=== PATIENT | female | born 1995 | race Caucasian/White ===

== ENCOUNTER 2018-12-03 20:39 | Emergency (ER) | payer OTHER ==
[~2018-12-03] VITALS: Ht 162.6 cm; Wt 46.8 kg
[2018-12-03] MEDS ORDERED: IBUP1TAB7 PO (20:44)
[2018-12-03] MEDS ORDERED: NORCO, ANEXSIA 5/325MG TABLET (HYDROcodone/ACETAMINOPHEN) PO ONE (22:45)
[2018-12-03] MEDS ORDERED: CORTISPORIN OTIC SOLN 10 ML BTL AS ONE (22:45)
[2018-12-03] MEDS ORDERED: AUGMENTIN 875 MG TAB PO ONE (22:45)
[2018-12-03] MEDS ORDERED: AUGM875T28 PO (22:58)
[2018-12-03] MEDS ORDERED: NEOM1SOL19 OTIC (22:58)
[2018-12-03] MEDS ORDERED: HYDR-3715 PO (22:58)
[2018-12-03 23:10] VITALS: BP 134/72
[2018-12-03] MEDS ORDERED: NORCO 5/325MG TABLET (BULK FOR ED) PO ONE (23:15)
== END 2018-12-03 23:20 | disposition home or self-care (01) ==
LOC: M ED 20:39
DX: H72.92 Unspecified perforation of tympanic membrane, left ear (principal)

== ENCOUNTER → 2019-01-11 | Outpatient (REF) | payer OTHER ==
[~2019-01-11] MED LIST: AUGM875T28 PO; HYDR-3715 PO; IBUP1TAB7 PO; NEOM1SOL19 OTIC
[2019-01-11 22:29] LABS: CHLAMYDIA DNA AMPLIFICATION NEGATIVE (NEGATIVE); GC DNA AMPLIFICATION NEGATIVE (NEGATIVE)
== END ==
LOC: M SFHCLERA 16:04
PROVIDERS: ATTEND Nurse Practitioner Family
DX: R39.9 Unspecified symptoms and signs involving the genitourinary system (principal)
CPT/HCPCS: 81002; 81025; 87086; 87661; G0463

== ENCOUNTER 2019-03-10 04:06 | Emergency (ER) | payer OTHER ==
[~2019-03-10] VITALS: Ht 162.6 cm; Wt 53.2 kg
[2019-03-10 04:46] LABS: BASO % 0.6 % (0.0-1.0); EOS # 0.2 10^3/uL (0.0-0.50); EOS % 2.5 % (0.0-3.0); HEMATOCRIT 41.7 % (36.0-47.0); HEMOGLOBIN 13.6 g/dl (12.0-15.5); MEAN CORPUSCULAR HEMOGLOBIN 28.5 pg (27.0-33.0); MEAN CORPUSCULAR HGB CONC 32.6 g/dl (32.0-36.5); MEAN CORPUSCULAR VOLUME 87.4 fl (80.0-96.0); MONO # 0.5 10^3/uL (0.0-0.8); MONO % 7.3 % (0.0-5.0); NEUTROPHILS # 4.5 10^3/uL (1.8-7.7); PLATELET COUNT, AUTOMATED 180 10^3/uL (150-450); RED BLOOD COUNT 4.77 10^6/uL (4.00-5.40); WHITE BLOOD COUNT 7.3 10^3/uL (4.0-10.0)
[2019-03-10 05:38] LABS: BLOOD UREA NITROGEN 11 MG/DL (7-18); CALCIUM LEVEL 8.4 MG/DL (8.5-10.1); CARBON DIOXIDE LEVEL 25 MEQ/L (21-32); CHLORIDE LEVEL 106 MEQ/L (98-107); CREATININE FOR GFR 0.66 MG/DL (0.55-1.30); GLOMERULAR FILTRATION RATE > 60.0 (>60); GLUCOSE, FASTING 89 MG/DL (70-100); HCG, SERUM QUANTITATIVE 6448 MIU/ML; POTASSIUM SERUM 3.9 MEQ/L (3.5-5.1); SODIUM LEVEL 139 MEQ/L (136-145)
--- NOTE | 2019-03-10 07:42 | REPVR ---
EXAM: US First Trimester, Transabdominal and US , Transvaginal EXAM DATE/TIME: 03/10/2019 6:37 AM CLINICAL HISTORY: 23 years old, female; Lmp or gestational age (in weeks): 01/30/2019; Other: Vaginal bleeding; TECHNIQUE: Imaging protocol: Real-time transabdominal obstetrical ultrasound of the maternal pelvis and a first trimester , less than 14 weeks 0 days, with image documentation. Transvaginal imaging was used for better evaluation of the fetus and adnexa. COMPARISON: No relevant prior studies available. FINDINGS: Other findings: A large heterogeneous hypo-and hypoechoic and echogenic collection measuring at least 3.9 x 2.3 x 1.9 cm is seen most likely blood. GESTATION: Gestation: Likely a small gestational sac seen at the superior aspect of the endometrial cavity sac diameter of 0.46 cm corresponding to 5 weeks and 2 days gestation. No pole or yolk sac seen. BIOMETRY: Estimated gestational age: 5 weeks and 2 days gestation by mean sac diameter MATERNAL: Uterus: The uterus measures 8.3 x 4.8 x 5.3 cm. No focal uterine mass is seen. Cervix: Unremarkable. Right adnexa: The right ovary is not clearly visualized. Left adnexa: The left ovary measures 3.2 x 3.4 x 2.3 cm containing a 2.6 x 2.4 x 1.7 cm thickwalled complex lesion with rim vascularity. Arterial blood flow seen to the left ovary. Intraperitoneal: No intraperitoneal free fluid. IMPRESSION: 1. Possibly history this is a small intrauterine gestational sac corresponding to 5 weeks and 2 days gestation by MSD with no pole or yolk sac seen and with a large adjacent heterogeneous collection likely subchorionic bleed. 2. Likely a 2.6 x 2.4 x 1.7 cm complex left ovarian corpus luteal cyst with no sonographic evidence of torsion. 3. Right adnexa and ovary obscured by bowel gas. 4. Although an intrauterine gestational sac is suggested, an ectopic cannot be completely excluded at this time. Correlation with beta hCG level is needed and follow up with ultrasound is recommended. Electronically signed by: Trino Lisa On 03/10/2019 07:41:24 AM
[2019-03-10 08:16] VITALS: BP 122/64
== END 2019-03-10 08:18 | disposition home or self-care (01) ==
LOC: M ED 04:06
DX: Z32.01 Encounter for pregnancy test, result positive (principal); O20.8 Other hemorrhage in early pregnancy; O26.891 Other specified pregnancy related conditions, first trimester; O20.0 Threatened abortion; O34.81 Maternal care for other abnormalities of pelvic organs, first trimester; Z3A.01 Less than 8 weeks gestation of pregnancy

== ENCOUNTER → 2019-03-12 | Outpatient (CLI) | payer OTHER | LOC: M LAB 10:13 | PROVIDERS: ATTEND Obstetrics & Gynecology | DX: N93.9 Abnormal uterine and vaginal bleeding, unspecified (principal) ==

== ENCOUNTER 2019-04-01 22:17 | Emergency (ER) | payer OTHER ==
[~2019-04-01] VITALS: Ht 162.6 cm; Wt 53.6 kg
[2019-04-01 22:53] LABS: BASO % 0.2 % (0.0-1.0); EOS # 0.1 10^3/uL (0.0-0.50); HEMATOCRIT 37.3 % (36.0-47.0); HEMOGLOBIN 12.5 g/dl (12.0-15.5); LYMPH # 2.2 10^3/uL (1.5-6.5); LYMPH % 17.5 % (24.0-44.0); MEAN CORPUSCULAR HEMOGLOBIN 29.1 pg (27.0-33.0); MEAN CORPUSCULAR HGB CONC 33.5 g/dl (32.0-36.5); MEAN CORPUSCULAR VOLUME 86.9 fl (80.0-96.0); MONO # 0.7 10^3/uL (0.0-0.8); MONO % 5.8 % (0.0-5.0); NEUTROPHILS # 9.2 10^3/uL (1.8-7.7); NEUTROPHILS % 74.9 % (36.0-66.0); PLATELET COUNT, AUTOMATED 154 10^3/uL (150-450); RED BLOOD COUNT 4.29 10^6/uL (4.00-5.40); WHITE BLOOD COUNT 12.3 10^3/uL (4.0-10.0)
[2019-04-02 02:00] VITALS: BP 122/68
--- NOTE | 2019-04-02 02:33 | REPVR ---
EXAM: US First Trimester, Transabdominal EXAM DATE/TIME: 04/02/19 (12:35am) CLINICAL HISTORY: 23 year old female with vaginal bleeding. LMP: 01/30/19. Antepartum complications. TECHNIQUE: Imaging protocol: Real-time transabdominal obstetrical ultrasound of the maternal pelvis and a first trimester , less than 14 weeks 0 days, with image documentation. COMPARISON: US OB of 03/10/19 FINDINGS: The LMP is reported to be: 01/30/19 An early live intrauterine gestation is identified, approx. 8 weeks 1 day gestational age, based on the crown-rump length (CRL = 17 mm). Based on the CRL measurement, the KAREN = 11/11/19. heart rate is recorded at 169 bpm. A yolk sac is visualized. motion is observed. The placenta is fundal in location, with no previa. A large subchorionic hemorrhage (3.7 x 3.3 x 3.4 cm in size) is noted, superior to the sac. The maternal right ovary measures 2.0 x 2.9 x 1.9 cm in dimensions. The left ovary measures 4.1 x 3.4 cm in two dimensions. A simple left ovarian cyst (1.7 x 1.9 cm size) is noted. There is no evidence of torsion on Doppler evaluation. No free pelvic fluid is appreciated. No solid adnexal mass. The cervix is closed. IMPRESSION: A single live IUP is seen, at 8 weeks 1 day gestational age (based on the CRL). heartbeat is recorded. A large subchorionic hemorrhage is noted, at the superior margin of the gestational sac. Simple left ovarian cyst (1.8 cm avg. size). No evidence of ovarian torsion. No free pelvic fluid. Electronically signed by: Kaylyn Ramirez On 04/02/2019 02:32:58 AM
== END 2019-04-02 03:40 | disposition left against medical advice (07) ==
LOC: M ED 22:17
DX: Z53.29 Procedure and treatment not carried out because of patient's decision for other reasons (principal)

== ENCOUNTER 2019-05-07 19:24 | Emergency (ER) | payer OTHER ==
[~2019-05-07] VITALS: Ht 162.6 cm; Wt 56.4 kg
[2019-05-07] MEDS ORDERED: [UNRECOGNIZED DRUG - OTHER] (19:33)
[2019-05-07 20:18] LABS: BASO % 0.3 % (0.0-1.0); EOS # 0.1 10^3/uL (0.0-0.5); EOS % 0.7 % (0.0-3.0); HEMATOCRIT 39.1 % (36.0-47.0); HEMOGLOBIN 13.4 g/dl (12.0-15.5); LYMPH # 1.5 10^3/uL (1.5-5.0); LYMPH % 9.6 % (24.0-44.0); MEAN CORPUSCULAR HEMOGLOBIN 29.6 pg (27.0-33.0); MEAN CORPUSCULAR HGB CONC 34.3 g/dl (32.0-36.5); MEAN CORPUSCULAR VOLUME 86.5 fl (80.0-96.0); MONO # 0.7 10^3/uL (0.0-0.8); MONO % 4.3 % (0.0-5.0); NEUTROPHILS # 12.9 10^3/uL (1.5-8.5); NEUTROPHILS % 84.4 % (36.0-66.0); PLATELET COUNT, AUTOMATED 155 10^3/uL (150-450); RED BLOOD COUNT 4.52 10^6/uL (4.00-5.40); WHITE BLOOD COUNT 15.3 10^3/uL (4.0-10.0)
[2019-05-07 20:28] LABS: HCG, SERUM QUALITATIVE POSITIVE (NEGATIVE)
[2019-05-07 20:32] LABS: ALBUMIN 3.7 GM/DL (3.2-5.2); ALT/SGPT 21 U/L (12-78); BILIRUBIN,DIRECT 0.1 MG/DL (0.0-0.2); BILIRUBIN,TOTAL 0.3 MG/DL (0.2-1.0); BLOOD UREA NITROGEN 8 MG/DL (7-18); CALCIUM LEVEL 8.9 MG/DL (8.5-10.1); CARBON DIOXIDE LEVEL 26 MEQ/L (21-32); CHLORIDE LEVEL 106 MEQ/L (98-107); CREATININE FOR GFR 0.52 MG/DL (0.55-1.30); GLOMERULAR FILTRATION RATE > 60.0 (>60); GLUCOSE, FASTING 80 MG/DL (70-100); LIPASE 76 U/L (73-393); POTASSIUM SERUM 3.8 MEQ/L (3.5-5.1); SODIUM LEVEL 139 MEQ/L (136-145); TOTAL PROTEIN 6.7 GM/DL (6.4-8.2)
[2019-05-07] MEDS ORDERED: ONDANSETRON 4MG/2ML VIAL (J2405) IV ONE (21:45)
[2019-05-07] MEDS ORDERED: NS 1,000 ML IV ONE (21:45)
[2019-05-07] MEDS ORDERED: ACETAMINOPHEN 325 MG TAB PO ONE (23:15)
[2019-05-08] MEDS ORDERED: ONDA4TAB6 PO (00:30)
[2019-05-08 00:48] VITALS: BP 103/59
== END 2019-05-08 00:50 | disposition home or self-care (01) ==
LOC: M ED 19:24
DX: O21.9 Vomiting of pregnancy, unspecified (principal); Z3A.13 13 weeks gestation of pregnancy
CPT/HCPCS: 80048; 80076; 81001; 83690; 84703; 85025; 87086; 99284; J2405

== ENCOUNTER → 2019-05-24 | Outpatient (REF) | payer OTHER ==
[~2019-05-24] MED LIST changes: +ONDA4TAB6 PO; +[UNRECOGNIZED DRUG - OTHER]
== END ==
LOC: M SFHCLERA 12:58
PROVIDERS: ATTEND Physician Assistant
DX: J02.9 Acute pharyngitis, unspecified (principal)